=== PATIENT | female | born 1960 | race Caucasian/White ===

== ENCOUNTER 2016-12-01 04:20 | Emergency (ER) | payer OTHER | END 2016-12-01 04:55 | disposition home or self-care (01) | LOC: FER 04:20 | DX: H66.002 Acute suppurative otitis media without spontaneous rupture of ear drum, left ear (principal); J34.89 Other specified disorders of nose and nasal sinuses; I10 Essential (primary) hypertension; F17.210 Nicotine dependence, cigarettes, uncomplicated; Z88.6 Allergy status to analgesic agent; Z88.8 Allergy status to other drugs, medicaments and biological substances; Z79.899 Other long term (current) drug therapy | CPT/HCPCS: 99283 ==